=== PATIENT | female | born 1975 | race Caucasian/White ===

== ENCOUNTER → 2017-01-26 | Outpatient (CLI) | payer BC ==
--- NOTE | ~2017-01-26 | CR63 ---
[facility] A Service of [facility] RADIOLOGY TEXT RESULTS PATIENT: GAVI DENNEY LOCATION: [facility] : 73 UNIT #: [id number] AGE: [address]: TAY HANDY APRN SEX: F ORDER DR: [id number] [facility] [address] [place], [place] [address] [id number] O MR#: [id number] Acc #: [id number] NAME: GAVI DENNEY : 1975 SEX: F STUDY DATE/TIME: 01/26/2017 14:58 UNIT: [facility] ROOM: STUDY DESCRIPTION: CR Chest 2 View Attending Physician: Tay Handy Referring Physician: Natanael Handy Aprn Ordering Physician: Natanael Handy Aprn Primary Care Physician: Bennie Ruiz M.D. MEDICAL IMAGING REPORT This report is preliminary unless electronic signature is present EXAM Two-view chest INDICATIONS Chronic cough for the past 2 months. PROCEDURE Frontal lateral views of the chest. None FINDINGS Heart size normal. No dense consolidation, pleural fluid or pneumothorax. IMPRESSION No active process Dictated by... Won Montoya M.D. THIS IS AN ELECTRONICALLY VERIFIED REPORT Won Montoya M.D. at 01/27/2017 2:27 PM NANCY/hector TD: 01/26/2017 23:24 JOB #: [id number] MEDICAL IMAGING REPORT Page 1 of 1 COPY
== END | disposition home or self-care (01) ==
LOC: CRAD 14:37
DX: R05 Cough (principal); Z72.0 Tobacco use
CPT/HCPCS: 71020

== ENCOUNTER → 2017-02-04 | Outpatient (CLI) | payer BC ==
--- NOTE | ~2017-02-04 | MY29 ---
[facility] A Service of [facility] RADIOLOGY TEXT RESULTS PATIENT: GAVI DENNEY LOCATION: [facility] : 73 UNIT #: [id number] AGE: [address]: TAY SEN APRN SEX: F ORDER DR: [id number] [facility] [address] [place], [place] [address] [id number] O MR#: [id number] Acc #: [id number] NAME: GAVI DENNEY : 1975 SEX: F STUDY DATE/TIME: 02/04/2017 10:50 UNIT: [facility] ROOM: STUDY DESCRIPTION: MY IDANIA SCREENING W/ CAD BILAT Attending Physician: Natanael Sen Aprn Referring Physician: Natanael Sen Aprn Ordering Physician: Natanael Sen Aprn Primary Care Physician: Natanael Sen Aprn MEDICAL IMAGING REPORT This report is preliminary unless electronic signature is present EXAM Digital screening mammogram 02/04/2017, [facility] HISTORY 41-year-old woman; positive family history. Baseline mammogram. COMPARISON None FINDINGS Digital imaging of each breast was completed utilizing a two-view examination of each breast in craniocaudal and mediolateral-oblique projections. Review and interpretation of digital mammograms include a second review in conjunction with FDA-approved CAD device. There is a normal parenchymal presentation bilaterally consistent with the patient's age. There are no breast masses imaged and no parenchymal asymmetry is visualized. There are no suspicious microcalcifications and I see no focal architectural disturbance. IMPRESSION Negative screening digital mammogram. One-year followup recommended. Patients over the age of 40 are entered into a reminder system with target due date for the next mammogram. A result letter will also be sent to the patient. BIRADS: 1 Negative Dictated by... Jonel Koehler M.D. THIS IS AN ELECTRONICALLY VERIFIED REPORT [facility] A Service [facility] RADIOLOGY TEXT RESULTS PATIENT: GAVI DENNEY LOCATION: [facility] : 73 UNIT #: [id number] AGE: [address]: TAY SEN APRN SEX: F ORDER DR: Jonel Koehler M.D. at 02/04/2017 2:19 PM Taylor TD: 02/04/2017 12:55 JOB #: [id number] MEDICAL IMAGING REPORT Page 1 of 1 COPY
== END | disposition home or self-care (01) ==
LOC: CWCC 10:15
DX: Z12.31 Encounter for screening mammogram for malignant neoplasm of breast (principal); Z80.3 Family history of malignant neoplasm of breast
CPT/HCPCS: G0202